=== PATIENT | female | born 1965 | race Caucasian/White ===

== ENCOUNTER 2017-06-12 20:39 | Inpatient (IN) | payer OTHER ==
[~2017-06-12] VITALS: Ht 167.6 cm; Wt 82.6 kg
[2017-06-12] MEDS ORDERED: HALOPERIDOL 5 MG TABLET PO PRN (22:30)
[2017-06-12] MEDS ORDERED: LORazepam 2 MG TABLET PO PRN (22:30)
[2017-06-12] MEDS ORDERED: ZOLPIDEM TARTRATE 10 MG TABLET PO PRN (22:30)
[2017-06-12 23:33] VITALS: BP 135/84
[2017-06-13 00:01] VITALS: BP 125/68
[2017-06-13 16:01] VITALS: BP 123/74
[2017-06-13] MEDS ORDERED: IBUPROFEN 400 MG TABLET PO PRN (16:30)
[2017-06-13] MEDS ORDERED: ACETAMINOPHEN 325 MG TABLET PO PRN (16:30)
[2017-06-13] MEDS: DIVALPROEX SODIUM 500 MG DR TABLET PO SCH (17:00)
[2017-06-13] MEDS: RisperiDONE 2 MG TABLET PO SCH (17:00)
[2017-06-14 08:40] VITALS: BP 109/59
[2017-06-14] MEDS: DIVALPROEX SODIUM 500 MG DR TABLET PO SCH ×2 (08:46→17:00)
[2017-06-14] MEDS: RisperiDONE 2 MG TABLET PO SCH (08:46)
[2017-06-14 16:19] VITALS: BP 110/65
[2017-06-14] MEDS: RisperiDONE 3 MG TABLET PO SCH (17:00)
[2017-06-15 06:04] VITALS: BP 115/73
[2017-06-15] MEDS: DIVALPROEX SODIUM 500 MG DR TABLET PO SCH ×2 (08:23→16:55)
[2017-06-15] MEDS: RisperiDONE 3 MG TABLET PO SCH ×2 (08:24→16:55)
[2017-06-15] MEDS ORDERED: HALOPERIDOL LACTATE 5 MG/ML VIAL IM ONE (08:30)
[2017-06-15] MEDS ORDERED: DiphenhydrAMINE HCL 50 MG/ML VIAL IM ONE (08:30)
[2017-06-15] MEDS ORDERED: LORazepam 2 MG/ML VIAL IM ONE (08:30)
[2017-06-16 08:18] VITALS: BP 129/71
[2017-06-16] MEDS: RisperiDONE 3 MG TABLET PO SCH ×2 (08:48→16:14)
[2017-06-16] MEDS: DIVALPROEX SODIUM 500 MG DR TABLET PO SCH ×2 (08:48→16:14)
[2017-06-17] MEDS: DIVALPROEX SODIUM 500 MG DR TABLET PO SCH ×2 (09:00→16:01)
[2017-06-17] MEDS: RisperiDONE 3 MG TABLET PO SCH ×2 (09:00→16:01)
[2017-06-17 09:07] VITALS: BP 106/74
[2017-06-17] MEDS ORDERED: DiphenhydrAMINE HCL 50 MG/ML VIAL ONE (13:02)
[2017-06-17] MEDS ORDERED: LORazepam 2 MG/ML VIAL ONE (13:02)
[2017-06-17] MEDS ORDERED: HALOPERIDOL LACTATE 5 MG/ML VIAL IM ONE (13:15)
[2017-06-17] MEDS ORDERED: DiphenhydrAMINE HCL 50 MG/ML VIAL IM ONE (13:15)
[2017-06-17] MEDS ORDERED: LORazepam 2 MG/ML VIAL IM ONE (13:15)
[2017-06-18 08:07] VITALS: BP 117/78
[2017-06-18] MEDS: DIVALPROEX SODIUM 500 MG DR TABLET PO SCH ×2 (09:00→17:00)
[2017-06-18] MEDS: RisperiDONE 3 MG TABLET PO SCH ×2 (09:00→17:00)
[2017-06-19] MEDS: DIVALPROEX SODIUM 500 MG DR TABLET PO SCH (09:00)
[2017-06-19] MEDS: RisperiDONE 3 MG TABLET PO SCH ×2 (09:00→17:00)
[2017-06-19] MEDS: VALPROIC ACID 250 MG/5 ML SYRUP UDCUP PO SCH (17:00)
[2017-06-19] MEDS: HALOPERIDOL LACTATE 5 MG/ML VIAL IM PRN (17:48)
[2017-06-20 08:11] VITALS: BP 124/80
[2017-06-20] MEDS: VALPROIC ACID 250 MG/5 ML SYRUP UDCUP PO SCH ×2 (09:00→17:00)
[2017-06-20] MEDS: RisperiDONE 3 MG TABLET PO SCH ×2 (09:00→17:00)
[2017-06-20] MEDS: HALOPERIDOL LACTATE 5 MG/ML VIAL IM PRN ×2 (09:30→17:34)
[2017-06-20 16:00] VITALS: BP 123/69
[2017-06-21] MEDS: VALPROIC ACID 250 MG/5 ML SYRUP UDCUP PO SCH ×2 (08:02→16:53)
[2017-06-21] MEDS: RisperiDONE 3 MG TABLET PO SCH ×2 (08:02→16:53)
[2017-06-21] MEDS: HALOPERIDOL LACTATE 5 MG/ML VIAL IM PRN ×2 (09:08→17:10)
[2017-06-22] MEDS: RisperiDONE 3 MG TABLET PO SCH ×2 (08:26→16:39)
[2017-06-22] MEDS: VALPROIC ACID 250 MG/5 ML SYRUP UDCUP PO SCH ×2 (08:26→16:39)
[2017-06-22] MEDS: HALOPERIDOL LACTATE 5 MG/ML VIAL IM PRN ×2 (08:45→17:25)
[2017-06-22 16:06] VITALS: BP 134/85
[2017-06-23] MEDS: RisperiDONE 3 MG TABLET PO SCH ×2 (09:05→16:27)
[2017-06-23] MEDS: VALPROIC ACID 250 MG/5 ML SYRUP UDCUP PO SCH ×2 (09:07→16:27)
[2017-06-23 16:04] VITALS: BP 111/65
[2017-06-24 08:08] VITALS: BP 105/53
[2017-06-24] MEDS: VALPROIC ACID 250 MG/5 ML SYRUP UDCUP PO SCH ×2 (09:11→16:11)
[2017-06-24] MEDS: RisperiDONE 4 MG TABLET PO SCH ×2 (09:11→16:11)
[2017-06-24 16:07] VITALS: BP 111/61
[2017-06-24] MEDS ORDERED: BENZOCAINE/MENTHOL LOZENGE PO PRN (17:00)
[2017-06-25 07:06] VITALS: BP 112/72
[2017-06-25 08:06] VITALS: BP 132/65
[2017-06-25] MEDS: RisperiDONE 4 MG TABLET PO SCH (09:07)
[2017-06-25] MEDS: VALPROIC ACID 250 MG/5 ML SYRUP UDCUP PO SCH (09:07)
[2017-06-25] MEDS ORDERED: VALP250 PO (12:35)
[2017-06-25] MEDS ORDERED: RISP4 PO (12:35)
== END 2017-06-25 16:05 | disposition home or self-care (01) | DRG 885 ==
LOC: EDSTATUS 20:39 → B2S 22:30 → B3A 06-15 10:00
PROVIDERS: ADMIT Psychiatry & Neurology Psychiatry; ATTEND Psychiatry & Neurology Psychiatry
DX: F25.0 Schizoaffective disorder, bipolar type (principal); R03.0 Elevated blood-pressure reading, without diagnosis of hypertension; Z53.29 Procedure and treatment not carried out because of patient's decision for other reasons; F41.9 Anxiety disorder, unspecified; Z88.8 Allergy status to other drugs, medicaments and biological substances; Z91.041 Radiographic dye allergy status; Z88.0 Allergy status to penicillin; Z91.19 Patient's noncompliance with other medical treatment and regimen; Z91.013 Allergy to seafood
CPT/HCPCS: 99285; J1200; J1630; J2060